=== PATIENT | male | born 1985 | race Native Hawaiian/Other Pacific Islander ===

== ENCOUNTER 2017-11-27 18:34 | Emergency (ER) | payer OTHER ==
[~2017-11-27] VITALS: Ht 182.9 cm; Wt 93.0 kg
[2017-11-27 18:49] VITALS: BP 132/93; TEMP 99.1
== END 2017-11-27 19:30 | disposition home or self-care (01) ==
LOC: ED 18:34
DX: S93.401A Sprain of unspecified ligament of right ankle, initial encounter (principal); X50.1XXA Overexertion from prolonged static or awkward postures, initial encounter; Y92.89 Other specified places as the place of occurrence of the external cause
CPT/HCPCS: 99282

== ENCOUNTER 2022-06-21 09:26 | Outpatient (CLI) | payer OTHER | END 2022-06-21 19:06 | disposition home or self-care (01) | LOC: LABW 09:26 | PROVIDERS: ATTEND Physician Assistant | DX: R07.89 Other chest pain (principal); R53.83 Other fatigue | CPT/HCPCS: 36415; 80053; 82550; 84484; 85379; 85652; 86140 ==

== ENCOUNTER 2022-06-25 08:41 | Outpatient (CLI) | payer OTHER ==
[2022-06-25 09:31] LABS: POTASSIUM 4.2 mmol/L (3.6-5.2)
== END 2022-06-25 19:27 | disposition home or self-care (01) ==
LOC: LABW 08:41
PROVIDERS: ATTEND Physician Assistant
DX: R07.89 Other chest pain (principal); R53.83 Other fatigue
CPT/HCPCS: 36415; 80053; 82550

== ENCOUNTER 2022-11-08 08:48 | Outpatient (CLI) | payer OTHER | END 2022-11-08 19:20 | disposition home or self-care (01) | LOC: RAD 08:48 | PROVIDERS: ATTEND Orthopaedic Surgery | DX: M25.511 Pain in right shoulder (principal) ==